=== PATIENT | male | born 1955 | race Caucasian/White ===

== ENCOUNTER 2021-08-19 09:55 | Inpatient (IN) | payer OTHER, SELFPAY ==
[2021-08-19] VITALS (27 sets, daily range): BP systolic 84–104; BP diastolic 43–69; PULSE 54–82; RESP 13–24; TEMP 36.5–37.3; O2SAT 94–100
--- NOTE | ~2021-08-19 | CT_ITS ---
EXAMINATION: CT abdomen pelvis w con EXAM DATE: 08/19/2021 15:26 INDICATION: GI bleed, fatigue, loose stools. TECHNIQUE: Spiral CT of the abdomen and pelvis was performed following intravenous injection of 100 m L Omnipaque 350. Axial, coronal and sagittal images of the abdomen and pelvis were reviewed. The do se-length product (DLP) for this examination was 362.14 mGy-cm. The exposure was tailored according to patient size (auto mA exposure control), and iterative reconstruction (ASIR) was used as additiona l dose reduction technique. There is no prior study for comparison. FINDINGS: There is a mass in the bulging into stomach from posterior wall, most of which appears to b e avidly enhancing. This measures 4.7 x 3.4 cm, statistically most likely gastrointestinal stromal ce ll tumor (GIST). There is lobulation of the spleen measuring about 3 cm, essentially isoechoic to the spleen on this phase of enhancement, but could be a mass such as hemangioma or hamartoma. Most splen ic masses are benign but metastatic disease, lymphoma to occur. Mid abdominal aorta measures 3.4 cm, mildly aneurysmal. Mild scattered aortic arterial sclerosis. Th e liver, adrenal glands and pancreas are unremarkable. Gallbladder is unremarkable. No biliary obst ruction. Portal and splenic veins are patent. Kidneys enhance symmetrically. There is no hydroneph rosis. Mild prostatomegaly. The bladder is unremarkable. There is no retroperitoneal or pelvic ly mphadenopathy. There is an appendicolith in the mid aspect of the appendix. Appendix appears congenitally large but otherwise without inflammation. There is expected amount of colonic stool. There is mild to moderate scattered colonic diverticulosis. There is no adjacent inflammatory change to suggest diverticuliti s. No free intraperitoneal gas. The heart is normal in size. There are no pericardial or pleural effusions. The lung bases are unremarkable. There are no osteoblastic or osteolytic lesions identif ied. IMPRESSION: 1. Gastric 4.7 cm mass statistically most likely GIST, consider endoscopy. 2. Indeterminate splenic region, possible mass. Consider abdominal MRI without and with contrast. 3. Mildly aneurysmal mid abdominal aorta, 3.4 cm. 4. Scattered colonic diverticulosis. Reviewed, dictated and finalized at location [facility]
--- NOTE | 2021-08-19 10:19 | ECG_ITS ---
Measurements Intervals Roberta Rate: 75 P: 74 CO: 184 QRS: 78 QRSD: 110 T: 69 QT: 437 QTc: 491 Interpretive Statements SINUS RHYTHM ATRIAL AND VENTRICULAR PREMATURE COMPLEXES INCOMPLETE RIGHT BUNDLE BRANCH BLOCK BORDERLINE ECG Electronically Signed On 08-19-2021 11:19:28 RN SPINE by Kenrick Batres D.O.
--- NOTE | 2021-08-19 10:51 | ED.GENADULT ---
HPI - General Adult General Chief complaint: GI Bleed Stated complaint: bleeding ulcer Time Seen by Provider: 08/19/21 10:19 Source: patient and RN notes reviewed History of Present Illness HPI narrative: Patient is a 65 y/o male complaining of moderate to severe weakness starting about 4 days ago. He states that walking or any activity makes it worse. He denies any pain. He noticed dark stool. He is on Eliquis for A fib. He was seen by Dr. Faust in office earlier today and sent here for further evaluation. Related Data Home Medications Medication Instructions Recorded Confirmed apixaban 5 mg tablet 5 mg PO BID 08/19/21 08/19/21 rosuvastatin 10 mg tablet 10 mg PO DAILY 08/19/21 08/19/21 sotalol 120 mg tablet 120 mg PO BID tablet 08/19/21 08/19/21 Allergies Allergy/AdvReac Type Severity Reaction Status Date / Time No Known Allergies Allergy Unverified 08/19/21 08:49 Review of Systems Constitutional: Constitutional: Denies chills, Denies fever(s), Denies headache(s) and Reports weakness Eyes: Eyes: Denies blurry vision ENT: Denies headache(s) and Denies neck pain Cardiovascular: Cardiovascular: Denies chest pain and Denies dyspnea Respiratory: Respiratory: Denies cough and Denies dyspnea Gastrointestinal: Gastrointestinal: Denies abdominal pain, Reports melena, Denies diarrhea, Denies nausea and Denies vomiting Genitourinary: Genitourinary: Denies hematuria and Denies dysuria Musculoskeletal: Musculoskeletal: Denies back pain and Denies neck pain Neurologic: Denies headache(s) and Reports weakness PMFSH Past Medical History Medical History (Updated 08/19/21 @ 15:19 by Nickie Guerra NP) Hyperlipidemia Normal colonoscopy 09/30 Obstructive sleep apnea (adult) (pediatric) Paroxysmal atrial fibrillation Surgical History Surgical History (Updated 08/19/21 @ 13:13 by Nickie Guerra NP) History of cardiac cath 02/03 normal S/P colonoscopic polypectomy Family History Family History Sibling Acute myocardial infarction Heart disease Mother Acute myocardial infarction Cerebrovascular accident Heart disease Father Kidney disease Other Colon polyp Social History Social History (Updated 08/19/21 @ 15:15 by Nickie Guerra NP) Social History: The patient smokes 1 ppd. He lives with his who is the poa. 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 He denies any alcohol marjuana or illicit drugs. code stated: full code Smoking status: Current every day smoker Tobacco type: cigarettes Second hand tobacco smoke exposure: No Alcohol intake: never Substance use: never Substance use type: does not use Living arrangements: with family Gender identity (if verbalized by the patient): Male Sexual Orientation (if Verbalized by the Patient): Straight or Heterosexual Spiritual care concerns: No Agree to blood products: Yes Exam Const: General: no acute distress and well developed Orientation/consciousness: oriented to person, oriented to place, oriented to time and patient oriented x3 HENMT: Head: normocephalic Ears: external ears normal General nose exam: Normal external nose present Eyes: General: appearance normal, both eyes and all related structures Conjunctivae: conjunctivae normal Neck: Neck: normal visual inspection and full ROM Chest: Chest palpation & inspection: normal inspection of the chest and no tenderness Resp: Effort & Inspection: normal respiratory effort Auscultation: clear to auscultation bilaterally Cardio: Rate: regular rate Rhythm: regular rhythm GI: GI Palp: No abdominal tenderness and Yes Soft to palpation Skin: General skin exam: turgor normal and pallor Neuro: General: oriented to person, oriented to place, oriented to time and patient oriented x3 Cognition (Neuro): normal cognition Extrem: General: normal to inspection, full ROM and no pedal lashay
[2021-08-19] MEDS: SODIUM CHLORIDE 0.9% IV 1,000 ML 999 ML IV CONT ×2 (10:56→12:25)
[2021-08-19 11:05] LABS: Basophils Absolute Auto 0.1 K/mm3 (0.0-0.1); Basophils Percent Auto 0.6 % (0.2-1.2); Eosinophils Absolute Auto 0.2 K/mm3 (0-0.3); Eosinophils Percent Auto 1.3 % (0-4.4); Hematocrit 25.7 % (42.0-52.0); Hemoglobin 8.4 g/dL (14.0-18.0); Immature Granulocyte Absolute 0.07 K/mm3 (0.00-0.031); Immature Granulocyte Percent A 0.6 % (0-0.5); Lymphocytes Absolute Auto 2.78 K/mm3 (0.9-3.2); Lymphocytes Percent Auto 22.8 % (18.3-44.2); Mean Corpuscular HGB Conc 32.7 g/dl (32-36); Mean Corpuscular Hemoglobin 33.7 pg (26-34); Mean Corpuscular Volume 103.2 fl (80-100); Monocytes Absolute Auto 0.8 K/mm3 (0.1-0.6); Monocytes Percent Auto 6.5 % (2.6-8.5); Neutrophils Absolute Auto 8.3 K/mm3 (1.3-6.7); Neutrophils Percent Auto 68.2 % (45.5-73.1); Platelet Count Result 185 k/mm3 (150-375); Red Blood Count 2.49 M/mm3 (4.6-6.20); White Blood Count 12.2 K/mm3 (4.5-10.0)
[2021-08-19 11:17] LABS: Alanine Aminotransferase 12 U/L (4-50); Albumin Level 3.4 g/dL (3.5-5.1); Alkaline Phosphatase 56 U/L (38-126); Anion Gap 3 mmol/L (8-16); Aspartate Amino Transferase 18 U/L (17-59); Bilirubin,Total < 0.1 mg/dL (0.2-1.3); Blood Urea Nitrogen 39 mg/dL (9-20); Calcium 8.7 mg/dL (8.4-10.2); Carbon Dioxide 24 mmol/L (22-30); Chloride 107 mmol/L (98-107); Estimated CRCL calculation 66 ml/min; Estimated Glomerular Filt Rate > 60; Glucose 122 mg/dL (65-110); Potassium 3.5 mmol/L (3.4-5.0); Sodium 134 mmol/L (137-145)
[2021-08-19 11:20] LABS: INR 1.2; Prothrombin Time 15.1 Seconds (11.1-14.7)
[2021-08-19 11:21] LABS: Partial Thromboplastin Time 31.5 SECONDS (22.3-36.8)
--- NOTE | 2021-08-19 11:56 | PC.NURSE ---
Dr here to assess patient at this time
--- NOTE | 2021-08-19 12:01 | PC.NURSE ---
Dr aware of low blood pressure. continue with first fluid bolus and repeat bolus after then start maintenance fluids
--- NOTE | 2021-08-19 12:04 | WPDGICN ---
Assessment and Plan Assessment and plan (1) Melena: Code(s): K92.1 - Melena Status: Acute Assessment and Plan: he began seen black stools last but that was after a dose of Pepto-Bismol. He takes Pepto-Bismol periodically if he has loose stools but normally his stools will return to normal color in a day or 2. When he became somewhat lightheaded and fatigued yesterday he realizes something else was wrong his hemoglobin is 8.4 which was before rehydration of a fluid bolus. He states that he is hungry and thirsty Explained him that we cannot let him eat now because of the possibility of performing an urgent EGD. explain him the endoscopy this use sedation the possibility of bleeding as a result of any maneuvers or procedures we perform (2) Hypotension: Code(s): I95.9 - Hypotension, unspecified Status: Acute Assessment and Plan: He is going to start a 2nd fluid bolus now as his blood pressure still somewhat soft. BUN is 39 with creatinine of 1.0. Obviously he is volume depleted (3) Paroxysmal atrial fibrillation: Code(s): I48.0 - Paroxysmal atrial fibrillation Status: Acute Assessment and Plan: this is the reason for the Eliquis. As I mentioned his last dose was early this morning. INR is 1.2 The hope is that we can perform endoscopy morning or perhaps even tomorrow afternoon. GI Consult Note Consult date/time: 08/19/21 12:04 HPI: Andrea Roman is a 65 year old male was admitted because he was feeling very weak for the past several days and is passing black tarry stools. He went to his primary care's office this morning and was directed to come to the emergency room. He was found have a hemoglobin of 8.4. His blood pressure was 84/60 and is still somewhat low after fluid bolus. The patient states he has never has had an ulcer before. He does not take anti-inflammatory medications. He is on Eliquis which was started a little over 2 years ago for atrial fibrillation. He has not had abdominal pain nausea or vomiting except that in the last 48 hours he has lost his appetite. He had a little chicken soup yesterday and then vomited. His emesis consisted of not only would look like soup but also coffee-ground type material. He has had nothing eat today because he did not feel like eating. He did however take his morning medications including Eliquis. He has never had a digestive disease before. Has no history of liver disease jaundice hepatitis or pancreatic disease. He does not drink alcohol. yesterday when he was at work found that he was short of breath simply walking across the room. He did not break out in a sweat Review of Systems Review of Systems: All systems reviewed & are unremarkable except as noted in HPI and below PMFSH Past Medical History Medical History Normal colonoscopy 09/30 Surgical History Surgical History History of cardiac cath 02/03 normal Family History Family History Sibling Acute myocardial infarction Heart disease Mother Acute myocardial infarction Cerebrovascular accident Heart disease Other Colon polyp Social History Social History Smoking status: Current every day smoker Tobacco type: cigarettes Second hand tobacco smoke exposure: No Alcohol intake: never Substance use: never Substance use type: does not use Gender identity (if verbalized by the patient): Male Sexual Orientation (if Verbalized by the Patient): Straight or Heterosexual Spiritual care concerns: No Agree to blood products: Yes Meds Home Medications and Allergies Home Medications Medication Instructions Recorded Confirmed Type apixaban 5 mg tablet 5 mg PO BID 08/19/21 08/19/21 Hist
--- NOTE | 2021-08-19 13:12 | PM.IMHP ---
H&P: HPI History of Present Illness Date/Time: 08/19/21 13:12 this 58 the patient history of atrial fibrillation and has been on eliquis and sotalol.The patient had been complaining of severe weakness but denies any dizziness or chest pain. He noticed dark stools of the last several days since last . he had been taking pepto bismol for upset stomach and loose stools . His hemoglobin is now 6.9 and had been 8.4 when he came to the ed. Two units of prbcs have been ordered for the patient and gi has been consulted. DR Butler had already seen the patient had suggested npo for possible egd. His bp has been dropping and he was given 3 liters of iv boluses in the ed. he was also started on protonix. The patient was initially admitted to observation but changed to inpatient . Chief Complaint: weakness Review of Systems Review of Systems: All systems reviewed & are unremarkable except as noted in HPI and below Constitutional: Constitutional: Reports as per HPI and Reports no additional constitutional complaints Eyes: Eyes: Reports as per HPI and Reports no additional eye complaints ENT: Reports system reviewed and no additional complaints, except as documented and Reports Normal hearing present Cardiovascular: Cardiovascular: Reports no additional cardiovascular complaints Respiratory: Respiratory: Reports no additional respiratory complaints and Reports no additional respiratory complaints Gastrointestinal: Gastrointestinal: Reports as per HPI and Reports no additional gastrointestinal complaints Musculoskeletal: Musculoskeletal: Reports no additional musculoskeletal complaints Integumentary/Breasts: Skin/Breast: Reports system reviewed and no additional complaints, except as docu and Reports as per HPI Neurologic: Reports system reviewed and no additional complaints, except as documented, Reports as per HPI and Reports Normal hearing present Psychiatric: Psychiatric: Reports no additional psychiatric complaints and Reports as per HPI Endocrine: Endocrine: Reports no additional endocrine complaints Hematologic/Lymphatic: Hematologic/Lymphatic: Reports no additional hematologic/lymphatic complaints Allergic/Immunologic: Allergic/Immunologic: Reports no additional allergic/immunologic complaints [facility] Past Medical History Medical History (Updated 08/19/21 @ 15:19 by Nickie Guerra NP) Hyperlipidemia Normal colonoscopy 09/30 Obstructive sleep apnea (adult) (pediatric) Paroxysmal atrial fibrillation Surgical History Surgical History (Updated 08/19/21 @ 13:13 by Nickie Guerra NP) History of cardiac cath 02/03 normal S/P colonoscopic polypectomy Family History Family History Sibling Acute myocardial infarction Heart disease Mother Acute myocardial infarction Cerebrovascular accident Heart disease Father Kidney disease Other Colon polyp Social History Social History (Updated 08/19/21 @ 15:15 by Nickie Guerra NP) Social History: The patient smokes 1 ppd. He lives with his who is the poa. 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 He denies any alcohol marjuana or illicit drugs. code stated: full code Smoking status: Current every day smoker Tobacco type: cigarettes Second hand tobacco smoke exposure: No Alcohol intake: never Substance use: never Substance use type: does not use Living arrangements: with family Gender identity (if verbalized by the patient): Male Sexual Orientation (if Verbalized by the Patient): Straight or Heterosexual Spiritual care concerns: No Agree to blood products: Yes Meds Home Medications and Allergies Home Medications Medication Instructions Recorded Confirmed Type apixaban 5 mg tablet 5 mg PO BID 08/19/21 08/19/21 History rosuvastatin 10 mg tablet 10 mg PO DAILY 08/19/21 08/19/21 History sotalol 120 mg tablet 120 mg PO BID tablet 08/19/21 08/19/21 History
[2021-08-19 13:16] LABS: Hemoglobin 6.9 g/dL (14.0-18.0)
[2021-08-19] MEDS: PANTOPRAZOLE SODIUM IV 40 MG VIAL IV PUSH ×2 (13:30→19:59)
[2021-08-19] MEDS: SODIUM CHLORIDE 0.9% IV 1,000 ML 125 ML IV CONT (13:30)
--- NOTE | 2021-08-19 14:09 | PC.NURSE ---
blood consent obtained at this time
[2021-08-19 14:14] LABS: SARS-CoV-2 RNA PCR Negative
[2021-08-19] MEDS: TUBING, BLOOD PLUM PUMP TUBING 1 EACH XX ×2 (14:35→16:27)
[2021-08-19] MEDS: SODIUM CHLORIDE 0.9% IV 250 ML 30 ML IV CONT ×2 (14:35→16:27)
--- NOTE | 2021-08-19 18:38 | ADMGEN ---
This patient, Andrea Roman, was admitted to Medical Room 345-01. Patient/family oriented to hospital policies and general routines including ID bracelet, bed and alarms, visiting hours, pain management, procedures, bathroom and other care routines, personal items, smoking policy, room service/diet, and visiting hours. Information on how to activate the Rapid Response Team has been discussed. Patient/Family are encouraged to report perceived risks to care and to ask questions if they do not understand what they are told or what they should do.
[2021-08-19 20:17] LABS: Hematocrit 26.7 % (42.0-52.0); Hemoglobin 8.8 g/dL (14.0-18.0)
--- NOTE | 2021-08-19 21:59 | PCRCNOTE ---
Rt asked pt. about CPAP use at home and PT. refused wearing his CPAP and does not want in house unit
[2021-08-19] MEDS: SOTALOL HCL 40 MG TABLET 120 MG PO (22:06)
[2021-08-20] VITALS (10 sets, daily range): BP systolic 91–116; BP diastolic 47–93; PULSE 56–78; RESP 18–23; TEMP 36–37.2; O2SAT 93–99
[2021-08-20 01:17] LABS: Hematocrit 26.2 % (42.0-52.0); Hemoglobin 8.8 g/dL (14.0-18.0)
[2021-08-20] MEDS: SODIUM CHLORIDE 0.9% IV 1,000 ML 125 ML IV CONT ×2 (01:27→13:24)
[2021-08-20 06:01] LABS: Basophils Percent Auto 0.2 % (0.2-1.2); Eosinophils Absolute Auto 0.1 K/mm3 (0-0.3); Eosinophils Percent Auto 0.8 % (0-4.4); Hematocrit 25.9 % (42.0-52.0); Hemoglobin 8.6 g/dL (14.0-18.0); Immature Granulocyte Absolute 0.04 K/mm3 (0.00-0.031); Immature Granulocyte Percent A 0.5 % (0-0.5); Lymphocytes Absolute Auto 1.54 K/mm3 (0.9-3.2); Lymphocytes Percent Auto 17.6 % (18.3-44.2); Mean Corpuscular HGB Conc 33.2 g/dl (32-36); Mean Corpuscular Hemoglobin 32.3 pg (26-34); Mean Corpuscular Volume 97.4 fl (80-100); Mean Platelet Volume 10.3 fl (7.4-10.4); Monocytes Absolute Auto 0.6 K/mm3 (0.1-0.6); Monocytes Percent Auto 6.5 % (2.6-8.5); Neutrophils Absolute Auto 6.5 K/mm3 (1.3-6.7); Neutrophils Percent Auto 74.4 % (45.5-73.1); Platelet Count Result 114 k/mm3 (150-375); Red Blood Count 2.66 M/mm3 (4.6-6.20); Red Cell Distribution Width 14.7 % (11.5-14.5); White Blood Count 8.7 K/mm3 (4.5-10.0)
[2021-08-20 06:11] LABS: Lactic Acid Reflex 0.7 mmol/L (0.7-2.1)
[2021-08-20 06:18] LABS: Alanine Aminotransferase 10 U/L (4-50); Albumin Level 2.7 g/dL (3.5-5.1); Alkaline Phosphatase 52 U/L (38-126); Anion Gap 2 mmol/L (8-16); Aspartate Amino Transferase 17 U/L (17-59); Bilirubin,Total 0.2 mg/dL (0.2-1.3); Blood Urea Nitrogen 17 mg/dL (9-20); CRP 0.5 mg/dL (<1.0); Calcium 7.7 mg/dL (8.4-10.2); Carbon Dioxide 21 mmol/L (22-30); Chloride 114 mmol/L (98-107); Estimated CRCL calculation 81 ml/min; Estimated Glomerular Filt Rate > 60; Glucose 95 mg/dL (65-110); Magnesium 1.9 mg/dL (1.6-2.3); Sodium 137 mmol/L (137-145)
[2021-08-20 06:22] LABS: D Dimer 0.27 ug/mL (<0.48)
--- NOTE | 2021-08-20 07:30 | P.PNIM_ITS ---
Progress Note: A&P Assessment and Plan (1) GI bleed: Code(s): K92.2 - Gastrointestinal hemorrhage, unspecified Status: Acute Assessment and Plan: * H/H 6.9/21.0 upon arrival * H/H on tred every 6 hours * Current H/H 8.6/25.9 * stool for occult blood pending * CT of abd Gastric mass of 4.7 cm * EGD found a bleeding ulcer * protinix * Two units of PRBC given 08/19/21 * hold eliquis for minimum of 2 weeks (2) Paroxysmal atrial fibrillation: Code(s): I48.0 - Paroxysmal atrial fibrillation Status: Chronic Assessment and Plan: * Currently in sinus rhythm * continue with sotalol * Trend for any changes * Eliquis on hold for now (3) Hypotension: Code(s): I95.9 - Hypotension, unspecified Status: Acute Assessment and Plan: * BP did get in the 80s systolically * most likely related to acute blood loss * iv fluids given and PRBC also given * Trend BP * Could be from the sotalol as well (4) Hyperlipidemia: Code(s): E78.5 - Hyperlipidemia, unspecified Status: Chronic Assessment and Plan: * continue with rosuvastin . monitor liver enzymes (5) Obstructive sleep apnea (adult) (pediatric): Code(s): G47.33 - Obstructive sleep apnea (adult) (pediatric) Status: Chronic Assessment and Plan: * titrate c pap (6) Melena: Code(s): K92.1 - Melena Status: Acute Assessment and Plan: * protonix and gi consult. hh every 6 h. transfuse as needed. (7) skilled nursing (current) use of anticoagulants: Code(s): Z79.01 - termite helper (current) use of anticoagulants Status: Acute Assessment and Plan: * hold eliquis Subjective Date/time seen: 08/20/21 0730 Interval history: Date/Time: 08/19/21 13:12 This 65 year old patient with a history of atrial fibrillation and has been on eliquis and sotalol.The patient had been complaining of severe weakness but denies any dizziness or chest pain. He noticed dark stools of the last several days since last . he had been taking pepto bismol for upset stomach and loose stools . His hemoglobin is now 6.9 and had been 8.4 when he came to the ed. Two units of prbcs have been ordered for the patient and gi has been consulted. DR Butler had already seen the patient had suggested npo for possible egd. His bp has been dropping and he was given 3 liters of iv boluses in the ed. he was also started on protonix. Date/Time 08/20/21 0730 Patient is lying in bed. He he is concerned disease hungry and would like to eat something. However patient is scheduled for an EGD today. Patient that the most of his issues were coming from the shingles vaccination. patient stated that his last BM was yesterday and has not any diarrhea or bowel movement since then. He denies any chest pain, shortness of breath, nausea, vomiting, diarrhea, constipation, sweats, fevers, chills. Talked to Dr. Mei this mor juanpablo about the patient he would like patient to be on a diet prior to discharge and he would also like to trend the H&H for another night. Review of Systems Review of Systems: All systems reviewed & are unremarkable except as noted in HPI and below Exam Const: General: cooperative, comfortable, no acute distress, well developed, alert, awake and Physically active Nutritional Appearance: average body habitus and well nourished Orientation/consciousness: oriented to person, oriented to place, oriented to time and patient oriented x3 Limitations
--- NOTE | 2021-08-20 07:30 | PM.IMPN ---
Progress Note: A&P Assessment and Plan (1) GI bleed: Code(s): K92.2 - Gastrointestinal hemorrhage, unspecified Status: Acute Assessment and Plan: H/H 6.9/21.0 upon arrival H/H on tred every 6 hours Current H/H 8.6/25.9 stool for occult blood pending CT of abd Gastric mass of 4.7 cm EGD found a bleeding ulcer protinix Two units of PRBC given 08/19/21 hold eliquis for minimum of 2 weeks (2) Paroxysmal atrial fibrillation: Code(s): I48.0 - Paroxysmal atrial fibrillation Status: Chronic Assessment and Plan: Currently in sinus rhythm continue with sotalol Trend for any changes Eliquis on hold for now (3) Hypotension: Code(s): I95.9 - Hypotension, unspecified Status: Acute Assessment and Plan: BP did get in the 80s systolically most likely related to acute blood loss iv fluids given and PRBC also given Trend BP Could be from the sotalol as well (4) Hyperlipidemia: Code(s): E78.5 - Hyperlipidemia, unspecified Status: Chronic Assessment and Plan: continue with rosuvastin . monitor liver enzymes (5) Obstructive sleep apnea (adult) (pediatric): Code(s): G47.33 - Obstructive sleep apnea (adult) (pediatric) Status: Chronic Assessment and Plan: titrate c pap (6) Melena: Code(s): K92.1 - Melena Status: Acute Assessment and Plan: protonix and gi consult. hh every 6 h. transfuse as needed. (7) superintendent terminal (current) use of anticoagulants: Code(s): Z79.01 - superintendent terminal (current) use of anticoagulants Status: Acute Assessment and Plan: hold eliquis Subjective Date/time seen: 08/20/21 0730 Interval history: Date/Time: 08/19/21 13:12 This 65 year old patient with a history of atrial fibrillation and has been on eliquis and sotalol.The patient had been complaining of severe weakness but denies any dizziness or chest pain. He noticed dark stools of the last several days since last . he had been taking pepto bismol for upset stomach and loose stools . His hemoglobin is now 6.9 and had been 8.4 when he came to the ed. Two units of prbcs have been ordered for the patient and gi has been consulted. DR Butler had already seen the patient had suggested npo for possible egd. His bp has been dropping and he was given 3 liters of iv boluses in the ed. he was also started on protonix. Date/Time 08/20/21 0730 Patient is lying in bed. He he is concerned disease hungry and would like to eat something. However patient is scheduled for an EGD today. Patient that the most of his issues were coming from the shingles vaccination. patient stated that his last BM was yesterday and has not any diarrhea or bowel movement since then. He denies any chest pain, shortness of breath, nausea, vomiting, diarrhea, constipation, sweats, fevers, chills. Talked to Dr. Mei this morning about the patient he would like patient to be on a diet prior to discharge and he would also like to trend the H&H for another night. Review of Systems Review of Systems: All systems reviewed & are unremarkable except as noted in HPI and below Exam Const: General: cooperative, comfortable, no acute distress, well developed, alert, awake and Physically active Nutritional Appearance: average body habitus and well nourished Orientation/consciousness: oriented to person, oriented to place, oriented to time and patient oriented x3 Limitations: no limitations HENMT: Head: normal to inspection, No palpable skull fracture present, normocephalic and atraumatic Ears: hearing grossly normal bilaterally and external ears normal General nose exam: Normal external nose present Eyes: General: appearance normal, both eyes and all related structures Alignment and Position: alignment normal EOM: EOMs intact bilaterally Neck: Neck: normal visual inspection Chest: Chest palpation & inspection: normal i
[2021-08-20] MEDS: POTASSIUM CHLORIDE INJ 40 MEQ in SODIUM CHLORIDE 0.9% IV 500 ML 130 MEQ IVPB (07:53)
[2021-08-20] MEDS: LACTATED RINGERS 1,000 ML 150 ML IV CONT (08:35)
[2021-08-20 08:38] LABS: Free T4 Free Thyroxine Reflex 1.13 ng/dL (0.78-2.19)
--- NOTE | 2021-08-20 09:00 | WPDANESEPPF ---
Anes - Initial Pre Proc Eval Procedure: Operation Date: 08/20/21 11:15 Proposed Procedures p Esophagogastroduodenoscopy - Skyler Mei MD Date/Time: 08/20/21 09:00 Surgeon: Ciara Morrow MD Pre Op Diagnosis: GI bleed/anemia Patient Data Age: 65 Gender: M Height: 1.85 m Weight: 73.6 kg Last Vital Signs Temp 36.1 C L 08/20/21 08:33 Pulse 57 L 08/20/21 08:33 Resp 19 08/20/21 08:33 BP 95/54 L 08/20/21 08:33 Pulse Ox 95 08/20/21 08:33 Allergies Allergy/AdvReac Type Severity Reaction Status Date / Time No Known Allergies Allergy Verified 08/20/21 08:32 Home Medications Medication Instructions Recorded Confirmed Type apixaban 5 mg tablet 5 mg PO BID 08/19/21 08/20/21 History rosuvastatin 10 mg tablet 10 mg PO DAILY 08/19/21 08/20/21 History sotalol 120 mg tablet 120 mg PO BID tablet 08/19/21 08/20/21 History Laboratory Tests 08/19/21 08/19/21 08/19/21 10:50 10:50 10:50 WBC 12.2 K/mm3 H K/mm3 (4.5-10.0) RBC 2.49 M/mm3 L M/mm3 (4.6-6.20) Hgb 8.4 g/dL L g/dL (14.0-18.0) Hct 25.7 % L % (42.0-52.0) MCV 103.2 fl H fl (80-100) MCH 33.7 pg pg (26-34) MCHC 32.7 g/dl g/dl (32-36) RDW 13.0 % % (11.5-14.5) Plt Count 185 k/mm3 k/mm3 (150-375) MPV 11.0 fl H fl (7.4-10.4) Immature Gran % (Auto) 0.6 % H % (0-0.5) Neut % (Auto) 68.2 % % (45.5-73.1) Lymph % (Auto) 22.8 % % (18.3-44.2) Grimes % (Auto) 6.5 % % (2.6-8.5) Eos % (Auto) 1.3 % % (0-4.4) Baso % (Auto) 0.6 % % (0.2-1.2) Lymph # (Auto) 2.78 K/mm3 K/mm3 (0.9-3.2) Grimes # (Auto) 0.8 K/mm3 H K/mm3 (0.1-0.6) Eos # (Auto) 0.2 K/mm3 K/mm3 (0-0.3) Baso # (Auto) 0.1 K/mm3 K/mm3 (0.0-0.1) Abs Immat Gran (auto) 0.07 K/mm3 H K/mm3 (0.00-0.031) Absolute Neuts (auto) 8.3 K/mm3 H K/mm3 (1.3-6.7) Absolute Nucleated RBC 0.0 K/mm3 K/mm3 (0.0-0.012) Nucleated RBC % 0.0 % % (0.0-0.2) PT INR APTT D-Dimer Sodium 134 mmol/L L mmol/L (137-145) Potassium 3.5 mmol/L mmol/L (3.4-5.0) Chloride 107 mmol/L mmol/L (98-107) Carbon Dioxide 24 mmol/L mmol/L (22-30) Anion Gap 3 mmol/L L mmol/L (8-16) BUN 39 mg/dL H mg/dL (9-20) Creatinine 1.00 mg/dL mg/dL (0.7-1.3) Estim Creat Clear Calc 66 ml/min ml/min Estimated GFR > 60 (59 - ) Glucose 122 mg/dL H mg/dL (65-110) Lactic Acid Calcium 8.7 mg/dL mg/dL (8.4-10.2) Magnesium Ferritin Total Bilirubin < 0.1 mg/dL L mg/dL (0.2-1.3) AST 18 U/L U/L (17-59) ALT 12 U/L U/L (4-50) Alkaline Phosphatase 56 U/L U/L (38-126) C-Reactive Protein Total Protein 5.0 g/dL L g/dL (6.3-8.2) Albumin 3.4 g/dL L g/dL (3.5-5.1) TSH (Reflex) Free T4 Total T3 SARS-CoV-2 RNA (RT-PCR) Blood Type A Positive Antibody Screen Negative Crossmatch See Detail 08/19/21 08/19/21 08/19/21 10:50 13:04 13:28 WBC RBC Hgb 6.9 g/dL L* g/dL (14.0-18.0) Hct 21.0 % L % (42.0-52.0) MCV MCH MCHC RDW Plt Count MPV Immature Gran % (Auto) Neut % (Auto) Lymph % (Auto) Grimes % (Auto) Eos % (Auto) Baso % (Auto) Lymph # (Auto) Grimes # (Auto) Eos # (Auto) Baso # (Auto) Abs Immat Gran (auto) Absolute Neuts (auto) Absolute Nucleated RBC
[2021-08-20 10:17] LABS: Total Triiodothyronine (T3) 1.09 NG/ML (0.97-1.69)
[2021-08-20] MEDS: fentaNYL CITRATE INJ (*CRX) 100 MCG/2 ML VIAL 25 MCG IV PUSH (10:32)
[2021-08-20] MEDS: PANTOPRAZOLE SODIUM IV 40 MG VIAL IV PUSH ×2 (13:25→18:35)
[2021-08-20] MEDS: ROSUVASTATIN 10 MG TABLET PO (13:25)
[2021-08-20] MEDS: SOTALOL HCL 40 MG TABLET 120 MG PO ×2 (13:25→19:57)
[2021-08-20 16:37] LABS: Hematocrit 27.3 % (42.0-52.0); Hemoglobin 8.8 g/dL (14.0-18.0)
[2021-08-20 22:04] LABS: Hematocrit 25.1 % (42.0-52.0); Hemoglobin 8.4 g/dL (14.0-18.0)
[2021-08-21] VITALS: BP 97/60; PULSE 60; PULSE 68; RESP 18; TEMP 36.6; O2SAT 97
--- NOTE | 2021-08-21 02:03 | PCRCNOTE ---
Pt states that he does not wear a CPAP at home and does not want to wear a hospital-provided CPAP while here. There is not CPAP machine in his room.
[2021-08-21] MEDS: SODIUM CHLORIDE 0.9% IV 1,000 ML 125 ML IV CONT (03:42)
[2021-08-21 04:00] VITALS: BP 108/58; PULSE 54; PULSE 56; RESP 18; TEMP 36.6; O2SAT 99
[2021-08-21 06:25] LABS: Basophils Percent Auto 0.5 % (0.2-1.2); Eosinophils Absolute Auto 0.1 K/mm3 (0-0.3); Eosinophils Percent Auto 1.5 % (0-4.4); Hematocrit 26.6 % (42.0-52.0); Hemoglobin 8.6 g/dL (14.0-18.0); Immature Granulocyte Absolute 0.02 K/mm3 (0.00-0.031); Immature Granulocyte Percent A 0.3 % (0-0.5); Immature Platelet Fraction Pct 5.4 % (0.9-11.2); Lymphocytes Absolute Auto 1.52 K/mm3 (0.9-3.2); Lymphocytes Percent Auto 23.1 % (18.3-44.2); Mean Corpuscular HGB Conc 32.3 g/dl (32-36); Mean Corpuscular Hemoglobin 32.5 pg (26-34); Mean Corpuscular Volume 100.4 fl (80-100); Mean Platelet Volume 10.7 fl (7.4-10.4); Monocytes Absolute Auto 0.6 K/mm3 (0.1-0.6); Monocytes Percent Auto 8.3 % (2.6-8.5); Neutrophils Absolute Auto 4.4 K/mm3 (1.3-6.7); Neutrophils Percent Auto 66.3 % (45.5-73.1); Platelet Count Result 131 k/mm3 (150-375); Red Blood Count 2.65 M/mm3 (4.6-6.20); Red Cell Distribution Width 14.9 % (11.5-14.5); White Blood Count 6.6 K/mm3 (4.5-10.0)
[2021-08-21 06:45] LABS: Alanine Aminotransferase 11 U/L (4-50); Albumin Level 2.9 g/dL (3.5-5.1); Alkaline Phosphatase 52 U/L (38-126); Anion Gap -2 mmol/L (8-16); Aspartate Amino Transferase 17 U/L (17-59); Bilirubin,Total 0.2 mg/dL (0.2-1.3); Blood Urea Nitrogen 11 mg/dL (9-20); Calcium 7.9 mg/dL (8.4-10.2); Carbon Dioxide 25 mmol/L (22-30); Chloride 115 mmol/L (98-107); Estimated CRCL calculation 81 ml/min; Estimated Glomerular Filt Rate > 60; Glucose 104 mg/dL (65-110); Magnesium 2.2 mg/dL (1.6-2.3); Potassium 3.4 mmol/L (3.4-5.0); Sodium 138 mmol/L (137-145); Transferrin 208 mg/dL (206-381)
[2021-08-21 07:20] LABS: Iron 29 ug/dL (49-181)
[2021-08-21 07:31] LABS: Percent Iron Saturation 10 % (20-50)
[2021-08-21 07:44] LABS: Folic Acid 10.1 ng/mL (2.76->20)
[2021-08-21 08:00] VITALS: BP 99/57; PULSE 57; RESP 19; TEMP 36.1; O2SAT 100
[2021-08-21 09:04] VITALS: PULSE 54
[2021-08-21] MEDS: ROSUVASTATIN 10 MG TABLET PO (09:04)
[2021-08-21] MEDS: FERROUS SULFATE 324 MG TABLET PO (09:04)
[2021-08-21] MEDS: SOTALOL HCL 40 MG TABLET 120 MG PO (09:04)
[2021-08-21] MEDS: PANTOPRAZOLE SODIUM IV 40 MG VIAL IV PUSH (09:05)
--- NOTE | 2021-08-21 11:00 | WPDGIPROGNO ---
Progress Note: A&P Assessment and Plan (1) Melena: Code(s): K92.1 - Melena Status: Acute Assessment and Plan: 08/19/21 he began seen black stools last but that was after a dose of Pepto-Bismol. He takes Pepto-Bismol periodically if he has loose stools but normally his stools will return to normal color in a day or 2. When he became somewhat lightheaded and fatigued yesterday he realizes something else was wrong his hemoglobin is 8.4 which was before rehydration of a fluid bolus. He states that he is hungry and thirsty I had Explained to him that we cannot let him eat now because of the possibility of performing an urgent EGD. 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 I told he will need to stay off Eliquis until his workup is complete. (2) Hypotension: Code(s): I95.9 - Hypotension, unspecified Status: Acute Assessment and Plan: Blood pressure is no longer a problem since he has been rehydrated (3) Paroxysmal atrial fibrillation: Code(s): I48.0 - Paroxysmal atrial fibrillation Status: Chronic Assessment and Plan: 08/19/21 this is the reason for the Eliquis. As I mentioned his last dose was early this morning. INR is 1.2 The hope is that we can perform endoscopy morning or perhaps even tomorrow afternoon. 08/21/21 I told him he will need to stay off Eliquis until his other studies including endoscopic ultrasound up done. (4) Stromal tumor: Status: Acute Assessment and Plan: I will arrange for EUS by Dr. Potter at [facility]. I explained to him in detail with a stromal tumor is. Explained that the most common types are leiomyomas or lipomas. I told that most are benign but some are malignant particularly if they obtain a larger size. His daughter is an anesthesiologist at [employer]. He may ask her for an opinion regarding surgeons. I discussed his case with Demetri Lopez. From my perspective he can be discharged today Subjective Date/time seen: 08/21/21 11:00 his hemoglobin is remaining stable. I discussed with him results of his endoscopy. He had 2 gastric ulcers, 1 with active bleeding and visible vessel. It was treated with epinephrine and cautery. These ulcers were on the surface of a large stromal tumor, probably add leiomyoma or similar lesion. I told him that he would need surgery for this basically an antrectomy. First however we need histology. The biopsies I took will likely only show normal mucosa. I told that he will need an endoscopic ultrasound and will arrange for that to be done at [facility]. Review of Systems Review of Systems: All systems reviewed & are unremarkable except as noted in HPI and below Exam Const: General: alert Orientation/consciousness: patient oriented x3 Resp: Auscultation: clear to auscultation bilaterally Cardio: Rhythm: regular rhythm GI: GI Palp: Yes Soft to palpation and No Tenderness to palpation present (GI) Neuro: General: patient oriented x3 Objective Data Vital Signs Vital Signs: Vital Signs - 24 hr 08/20/21 13:45 08/20/21 18:34 08/20/21 19:57 Temperature 36.0 C L 36.6 C Pulse Rate 56 L 77 72 Respiratory Rate 20 18 Blood Pressure 91/53 L 95/47 L Pulse Oximetry 99 98 08/20/21 20:00 08/21/21 00:00 08/21/21 04:00 Temperature 37.2 C 36.6 C 36.6 C Pulse Rate 70 60 54 L Respiratory Rate 18 18 18 Blood Pressure 98/51 L 97/60 L 108/58 L Pulse Oximetry 99 97 99 08/21/21 08:00 08/21/21 09:04 Temperature 36.1 C L Pulse Rate 57 L 54 L Respiratory Rate 19 Blood Pressure 99/57 L Pulse Oximetry 100 Intake/Output Intake
--- NOTE | 2021-08-21 11:15 | PM.DS ---
DS: Admitting Diagnosis Discharge Date 08/21/21 11:15 Admitting Diagnosis GI bleed /anemia DS: Discharge Diagnosis Discharge Diagnosis (1) GI bleed: Code(s): K92.2 - Gastrointestinal hemorrhage, unspecified Status: Acute Assessment and Plan: H/H 6.9/21.0 upon arrival H/H on tred every 6 hours Current H/H 8.6/26.6 stool for occult blood pending CT of abd Gastric mass of 4.7 cm EGD found a bleeding ulcer protinix Two units of PRBC given 08/19/21 hold eliquis for minimum of 2 weeks (2) Paroxysmal atrial fibrillation: Code(s): I48.0 - Paroxysmal atrial fibrillation Status: Chronic Assessment and Plan: Currently in sinus rhythm continue with sotalol Trend for any changes Eliquis on hold for now (3) Hypotension: Code(s): I95.9 - Hypotension, unspecified Status: Acute Assessment and Plan: BP did get in the 80s systolically most likely related to acute blood loss iv fluids given and PRBC also given Trend BP Could be from the sotalol as well (4) Hyperlipidemia: Code(s): E78.5 - Hyperlipidemia, unspecified Status: Chronic Assessment and Plan: continue with rosuvastin . monitor liver enzymes (5) Obstructive sleep apnea (adult) (pediatric): Code(s): G47.33 - Obstructive sleep apnea (adult) (pediatric) Status: Chronic Assessment and Plan: titrate c pap (6) Melena: Code(s): K92.1 - Melena Status: Acute Assessment and Plan: protonix and gi consult. hh every 6 h. transfuse as needed. 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 DS: Summary Hospital Course Hospital Course: Patient is a 65 year old male with a past medical history of hyperlipidemia, AFib, BANDAR who presented to the ED with complaints weakness and dark stools over the last couple days. Hemoglobin hematocrit upon arrival was 6.9/21.0 patient was transfuse 1 unit of packed red blood cells. CT of the abdomen showed a gastric mass of 4.[address] Mie was consulted and patient was taken for an EGD where a bleeding ulcer was found Which was cauterized and controlled in GI lab. Diet was advanced slowly and patient's labs were trended throughout the night. Hemoglobin hematocrit have remained stable and H&H is currently 8.6/26.6. Anemia labs were also drawn and patient was found to be iron deficient. Iron supplementation was also provided. Patient is ready to go he has been ready to go. He is tolerating his diet and GI has agreed with discharge at this time. Referrals have been made to a GI specialist in [place] or patient will need endoscopic ultrasound-guided biopsy. Labs and vital signs are stable at this time. Patient has no complaints including chest pain, shortness of breath, nausea, vomiting, diarrhea, constipation, weakness, fatigue. Status at Discharge Functional status at discharge: independent ambulation Overall status at discharge: patient is progressing back to baseline Time Spent with Patient Time attestation: Total time spent providing and/or coordinating discharge services: 42 minutes Time spent: Greater than 30 minutes Exam Const: General: cooperative, comfortable, no acute distress, well developed, alert, awake, Physically active and ill appearing Nutritional Appearance: average body habitus and well nourished Orientation/consciousness: oriented to person, oriented to place, oriented
--- NOTE | 2021-08-21 11:15 | P.DS_ITS ---
DS: Admitting Diagnosis Discharge Date 08/21/21 11:15 Admitting Diagnosis GI bleed /anemia DS: Discharge Diagnosis Discharge Diagnosis (1) GI bleed: Code(s): K92.2 - Gastrointestinal hemorrhage, unspecified Status: Acute Assessment and Plan: * H/H 6.9/21.0 upon arrival * H/H on tred every 6 hours * Current H/H 8.6/26.6 * stool for occult blood pending * CT of abd Gastric mass of 4.7 cm * EGD found a bleeding ulcer * protinix * Two units of PRBC given 08/19/21 * hold eliquis for minimum of 2 weeks (2) Paroxysmal atrial fibrillation: Code(s): I48.0 - Paroxysmal atrial fibrillation Status: Chronic Assessment and Plan: * Currently in sinus rhythm * continue with sotalol * Trend for any changes * Eliquis on hold for now (3) Hypotension: Code(s): I95.9 - Hypotension, unspecified Status: Acute Assessment and Plan: * BP did get in the 80s systolically * most likely related to acute blood loss * iv fluids given and PRBC also given * Trend BP * Could be from the sotalol as well (4) Hyperlipidemia: Code(s): E78.5 - Hyperlipidemia, unspecified Status: Chronic Assessment and Plan: * continue with rosuvastin . monitor liver enzymes (5) Obstructive sleep apnea (adult) (pediatric): Code(s): G47.33 - Obstructive sleep apnea (adult) (pediatric) Status: Chronic Assessment and Plan: * titrate c pap (6) Melena: Code(s): K92.1 - Melena Status: Acute Assessment and Plan: * protonix and gi consult. hh every 6 h. transfuse as needed. (7) assisted (current) use of anticoagulants: Code(s): Z79.01 - assisted (current) use of anticoagulants Status: Acute Assessment and Plan: * hold eliquis (8) Anemia: Code(s): D64.9 - Anemia, unspecified Status: Acute Assessment and Plan: * Combination of acute blood loss anemia and iron deficient anemia * looking through the history iron deficient anemia is not mentioned would assume this is acute and current * anemia labs indicated patient was iron deficient * iron supplementation has been started. DS: Summary Hospital Course Hospital Course: Patient is a 65 year old male with a past medical history of hyperlipidemia, AFib, BANDAR who presented to the ED with complaints weakness and dark stools over the last couple days. Hemoglobin hematocrit upon arrival was 6.9/21.0 patient was transfuse 1 unit of packed red blood cells. CT of the abdomen showed a gastric mass of 4.[address] Mei was consulted and patient was taken for an EGD where a bleeding ulcer was found Which was cauterized and controlled in GI lab. Diet was advanced slowly and patient's labs were trended throughout the night. Hemoglobin hematocrit have remained stable and H&H is currently 8.6/26.6. Anemia labs were also drawn and patient was found to be iron deficient. Iron supplementation was also provided. Patient is ready to go he has been ready to go. He is tolerating his diet and GI has agreed with discharge at this time. Referrals have been made to a GI specialist in [place] or patient will need endoscopic ultrasound-guided biopsy. Labs and vital signs are stable at this time. Patient has no complaints including chest pain, shortness of breath, nausea, vomiting, diarrhea, constipation, weakness, fatigue. Status at Discharge Functional status at discharge: independent ambulation Overall status at discharge: patient is progress
== END 2021-08-21 12:45 | disposition home or self-care (01) | DRG 378 ==
LOC: ANHED 13:13 → ANH3MEDSUR 15:22 → ANH3MED 08-20 12:23 → ANH3MEDSUR 08-22 13:11
PROVIDERS: Internal Medicine Gastroenterology; Nurse Practitioner; Admitting Provider Family Medicine; Emergency Provider Emergency Medicine; PCP Family Medicine Adolescent Medicine; Visit Provider Nurse Practitioner
PROC: 0DJ08ZZ Inspection of Upper Intestinal Tract, Via Natural or Artificial Opening Endoscopic (ICD-10-PCS; CPT 43235; principal; 2021-08-20 11:15)
DX: K25.4 Chronic or unspecified gastric ulcer with hemorrhage (principal); D62 Acute posthemorrhagic anemia; K21.9 Gastro-esophageal reflux disease without esophagitis; I48.0 Paroxysmal atrial fibrillation; D48.1 Neoplasm of uncertain behavior of connective and other soft tissue; D50.9 Iron deficiency anemia, unspecified; E78.5 Hyperlipidemia, unspecified; F17.210 Nicotine dependence, cigarettes, uncomplicated; G47.33 Obstructive sleep apnea (adult) (pediatric); I95.9 Hypotension, unspecified; R53.1 Weakness; Z79.01 Long term (current) use of anticoagulants; Z20.822 Contact with and (suspected) exposure to COVID-19
CPT/HCPCS: 36415; 36430; 74177; 80053; 82607; 82728; 82746; 83540; 83550; 83605; 83735; 84439; 84443; 84466; 84480; 85014; 85018; 85025; 85055; 85380; 85610; 85730; 86140; 86850; 86900; 86901; 86920; 87081; 88305; 93005; 96360; 99285; A9270; C9113; C9803; J0171; J2704; J3010; J3480; J7030; J7040; J7050; J7120; P9016; Q9967; U0003; U0005

== ENCOUNTER 2024-01-05 10:30 | Outpatient (CLI) | payer OTHER, SELFPAY ==
--- NOTE | ~2024-01-05 | CT_ITS ---
EXAMINATION: CT abd pelvis lumbar wo con DATE: 01/05/2024 10:48 INDICATION: Gastrointestinal stromal tumor, unspecified. Low back pain. TECHNIQUE: Computed tomography (CT) of the abdomen and pelvis and lumbar spine was performed without intravenous contrast. Automated exposure control and iterative reconstruction technique were employed . The dose-length product was 558.67 mGy-cm. COMPARISON: CT abdomen and pelvis 08/19/2021 FINDINGS: CT ABDOMEN AND PELVIS: The visualized portions of the lung bases demonstrate mild atelectasis. No ple ural effusion. The heart size is normal. No pericardial effusion. The liver, gallbladder, spleen, alexander creas, and adrenal glands are normal. There are cysts in right kidney measuring up to 2.4 cm. There i s a 1.4 cm hemorrhagic cyst in left kidney. There is a 3.5 cm fusiform aneurysm of infrarenal aorta. There is diverticulosis of the colon without evidence of diverticulitis. The appendix is normal. Ther e are surgical changes of the stomach. There are no pathologically enlarged lymph nodes. There is no free intraperitoneal fluid. The prostate is mildly enlarged. There is a left inguinal hernia containi ng fat. CT LUMBAR SPINE: Bone alignment normal. Vertebral body heights are normal. There is mildly decreased disc height at L2-L3 and moderately decreased disc height at L5-S1. The following disc levels are spe cifically discussed: L1-L2: The disc does not extend beyond the endplate margin. There is mild bilateral facet joint osteo arthritis. There is no neural foraminal stenosis. There is no central canal stenosis. L2-L3: The disc is bulging. There is mild bilateral facet joint osteoarthritis. There is mild bilater al neural foraminal stenosis. There is mild central canal stenosis. L3-L4: The disc is bulging. There is mild bilateral facet joint osteoarthritis. There is mild bilater al neural foraminal stenosis. There is mild central canal stenosis. L4-L5: The disc is bulging. There is mild bilateral facet joint osteoarthritis. There is mild bilater al neural foraminal stenosis. There is mild central canal stenosis. L5-S1: The disc is bulging. There is mild bilateral facet joint osteoarthritis. There is mild bilater al neural foraminal stenosis. There is mild central canal stenosis. IMPRESSION: 1. No evidence of metastatic disease. 2. 3.5 cm fusiform infrarenal aortic aneurysm. 3. Moderate lower lumbar spondylosis. Reviewed, dictated and finalized at location A.
== END 2024-01-05 10:31 ==
LOC: MICIMG 10:30
PROVIDERS: PCP Family Medicine Adolescent Medicine; Visit Provider Family Medicine Adolescent Medicine
DX: C49.A0 Gastrointestinal stromal tumor, unspecified site (principal); M47.896 Other spondylosis, lumbar region; I71.40 Abdominal aortic aneurysm, without rupture, unspecified
CPT/HCPCS: 72131; 74176

== ENCOUNTER 2024-02-10 12:40 | Outpatient (CLI) | payer OTHER, SELFPAY ==
--- NOTE | ~2024-02-10 | MR_ITS ---
EXAMINATION: MR orbits face neck wo/w con DATE: 02/10/2024 13:42 INDICATION: Bilateral hypertensive retinopathy TECHNIQUE: Magnetic resonance imaging (MRI) of the brain, brainstem, and orbits was performed without and with 15 mL Multihance intravenous contrast. Sequences included sagittal and axial T1-weighted SE , axial diffusion-weighted FS EPI, axial T2*-weighted GRE, axial T2-weighted FLAIR Propeller, and axi al T2-weighted Propeller. Small oesif-an-jyvy sequences of the orbits included coronal and axial T2-w eighted FS FSE and T1-weighted FSE. Postcontrast sequences included axial T1-weighted SE and small fi [id number] axial and coronal T1-weighted FS FSE. Apparent diffusion coefficient (ADC) maps were cre ated. COMPARISON: None. FINDINGS: There are no areas of restricted diffusion to suggest acute infarction. No intracranial hemorrhage or abnormal intracranial mass lesion. Minimal scattered areas of nonspecific increased T2-weighted sign al intensity in the cerebral white matter which is well within normal limits for age and likely seque la of chronic small vessel ischemic disease. There are no intraparenchymal signal abnormalities seen on the other pulse sequences. The ventricles are symmetric and normal in size. There are no abnormal extra-axial fluid collections. Flow voids are seen in the cerebral arteries on the T2-weighted sequen olivia consistent with their expected patency. Small mucous retention cyst at the floor of the right max illary sinus. Visualized orbits and soft tissues are unremarkable. There are no areas of abnormal enh ancement on the post contrast images. IMPRESSION: 1. Unremarkable MRI of the brain and orbits with minimal scattered nonspecific white matter T2 hyperi ntensity which is well within normal limits for age. Reviewed, dictated and finalized at location A. IMPRESSION: 1. Unremarkable MRI of the brain and orbits with minimal scattered nonspecific white matter T2 hyperintensity which is well within normal limits for age.
== END 2024-02-10 12:41 ==
LOC: MICIMG 12:42
DX: H35.033 Hypertensive retinopathy, bilateral (principal)
CPT/HCPCS: 70543; A9577